=== PATIENT | female | born 1940 | race Caucasian/White ===

== ENCOUNTER 2018-08-08 04:24 | Outpatient (CLI) | payer MEDICARE, SELFPAY ==
[2018-08-08 08:37] LABS: ALT 28 U/L (12-78); AST 25 U/L (15-37); Albumin 4.1 g/dL (3.4-5.0); Alkaline Phosphatase 132 U/L (46-116); Anion Gap 8.1 mmol/L (3-11); BUN 14 mg/dL (7-18); Bilirubin, Total 0.4 mg/dL (0.2-1.0); CO2 28.9 mmol/L (21.0-32.0); CREATININE 0.72 mg/dL (0.55-1.02); Calcium 9.2 mg/dL (8.5-10.1); Chloride 98 mmol/L (98-107); Glucose 92 mg/dL (70-100); Potassium 4.1 mmol/L (3.5-5.1); Sodium 135 mmol/L (136-145); Total Protein 7.3 g/dL (6.4-8.2)
[2018-08-08 08:49] LABS: Cholesterol 231 mg/dL (50-200); HDL Cholesterol 69 mg/dL (40-60); LDL CHOLESTEROL 142 mg/dL (<100); Triglyceride 66 mg/dL (30-150)
== END 2018-08-08 04:44 ==
DX: I10 Essential (primary) hypertension (principal); E78.2 Mixed hyperlipidemia; H81.02 Meniere's disease, left ear
CPT/HCPCS: 36415; 80053; 80061; 83721

== ENCOUNTER 2018-08-30 06:30 | Outpatient (CLI) | payer MEDICARE, OTHER, SELFPAY ==
--- NOTE | 2018-08-30 08:00 | DI.MAMMO_ITS ---
SYMPTOMS/DIAGNOSIS: SCREENING, Z12.31 MAMMOGRAMS: Mammograms were interpreted according to the usual protocol including computer analysis with CAD system, tomosynthesis and C view imaging. The breast tissue is of moderate radiodensity. There is no evidence of a mass. There are no suspicious calcifications and there has been no significant interval change when compared with prior images. SUMMARY: No evidence of malignancy, category 1. Yearly screening mammography is recommended. Breast density category B. SA ASSESSMENT OF FINDINGS: Negative. Category 1. Patient will receive a letter notifying them of these results. BI-RADS category B. There are scattered areas of fibroglandular density.
== END 2018-08-30 06:50 ==
DX: Z12.31 Encounter for screening mammogram for malignant neoplasm of breast (principal)
CPT/HCPCS: 77063; 77067

== ENCOUNTER 2019-07-19 02:12 | Outpatient (CLI) | payer MEDICARE, OTHER, SELFPAY ==
--- NOTE | 2019-07-19 | DI.MRI_ITS ---
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 CONTRAST MATERIAL: IV Contrast: 13 mL of Magnevist contrast administered. COMPARISON: No exams were available for comparison FINDINGS: VENTRICLES AND EXTRA AXIAL SPACES: Normal in size and morphology for the patient's age. HEMORRHAGE: None. CEREBRAL PARENCHYMA: No focus of restricted diffusion to suggest acute infarct. No space-occupying le berny identified. MIDLINE SHIFT: None. BRAINSTEM/CEREBELLUM: Normal. CALVARIUM: Normal. ENHANCEMENT: No suspicious enhancement identified. VISUALIZED PARANASAL SINUSES/MASTOIDS: Clear. IAC/CP ANGLE: The internal auditory canals are within normal limits. The cerebellar pontine angles ar e unremarkable. No enhancing lesions are seen. Visualized portion of the facial nerves appear within normal limits. OTHER FINDINGS: A normal flow void is seen in the [place]. The pituitary gland appears koffi sly unremarkable. IMPRESSION: Unremarkable MRI of the brain and internal auditory canals. DATA REPOSITORY:
[2019-07-19 14:09] LABS: ALT 29 U/L (14-59); AST 27 U/L (15-37); Albumin 4.4 g/dL (3.4-5.0); Alkaline Phosphatase 132 U/L (46-116); Anion Gap 7.2 mmol/L (3-11); BUN 12 mg/dL (7-18); Bilirubin, Total 0.4 mg/dL (0.2-1.0); CO2 30.8 mmol/L (21.0-32.0); CREATININE 0.74 mg/dL (0.55-1.02); Calcium 9.1 mg/dL (8.5-10.1); Chloride 94 mmol/L (98-107); Glucose 99 mg/dL (74-106); Potassium 3.4 mmol/L (3.5-5.1); Sodium 132 mmol/L (136-145)
[2019-07-19] MEDS: Normal Saline Flush 10 ML SYR IVP (14:26)
[2019-07-19] MEDS: Gadoterate meglumine 20 ML VIAL 13 ML IVP (14:27)
== END 2019-07-19 02:32 ==
PROVIDERS: Visit Provider Otolaryngology
DX: H90.42 Sensorineural hearing loss, unilateral, left ear, with unrestricted hearing on the contralateral side (principal); R42 Dizziness and giddiness; H53.8 Other visual disturbances
CPT/HCPCS: 70553; 80053

== ENCOUNTER 2020-02-21 04:11 | Outpatient (CLI) | payer MEDICARE, OTHER, SELFPAY ==
[2020-02-21 10:24] LABS: TSH (W/Ref FT4) 2.86 uIU/mL (0.36-3.74)
== END 2020-02-21 04:31 ==
DX: G47.00 Insomnia, unspecified (principal); L65.9 Nonscarring hair loss, unspecified
CPT/HCPCS: 36415; 84443

== ENCOUNTER 2020-09-08 02:33 | Outpatient (CLI) | payer MEDICARE, OTHER, SELFPAY ==
[2020-09-08 09:53] LABS: ALT 29 U/L (14-59); AST 25 U/L (15-37); Albumin 4.1 g/dL (3.4-5.0); Alkaline Phosphatase 124 U/L (46-116); Anion Gap 9.2 mmol/L (3-11); BUN 15 mg/dL (7-18); Bilirubin, Total 0.5 mg/dL (0.2-1.0); CO2 28.8 mmol/L (21.0-32.0); CREATININE 0.8 mg/dL (0.55-1.02); Calcium 9.1 mg/dL (8.5-10.1); Chloride 99 mmol/L (98-107); Glucose 94 mg/dL (74-106); Potassium 4.5 mmol/L (3.5-5.1); Sodium 137 mmol/L (136-145); Total Protein 7.4 g/dL (6.4-8.2)
== END 2020-09-08 02:34 | disposition home or self-care (01) ==
LOC: LBO 02:33
DX: I10 Essential (primary) hypertension (principal); H81.02 Meniere's disease, left ear; Z00.00 Encounter for general adult medical examination without abnormal findings
CPT/HCPCS: 36415; 80053

== ENCOUNTER 2021-03-23 15:26 | Outpatient (REF) | payer MEDICARE, OTHER, SELFPAY | END 2021-03-23 15:27 | disposition home or self-care (01) | LOC: LBN 15:26 | DX: N39.0 Urinary tract infection, site not specified (principal) | CPT/HCPCS: 87077; 87086; 87186 ==

== ENCOUNTER 2021-03-25 10:31 | Emergency (ER) | payer MEDICARE, OTHER, SELFPAY ==
[2021-03-25 10:36] VITALS: BP 171/67; PULSE 106; RESP 16; TEMP 36.3; O2SAT 97
--- NOTE | 2021-03-25 11:10 | W.ED.GENAD ---
Discharge Plan Disposition Patient Disposition: HOME Condition: Stable Discharge Details Clinical Impression: Renal cyst, [place], hemorrhage, Hypokalemia, Acute hyponatremia Primary Care Provider: Annamaria Ferrer ED Provider: Kristi Dave Home Meds and New Rx's Prescriptions: Continued meclizine 25 mg tablet 25 mg PO TID PRNRF: 0 potassium chloride 10 mEq tablet extended release 10 meq PO .every other day Qty: 45 RF: 3 polyethylene glycol 3350 [Miralax] 17 gram/dose powder 17 g PO DAILY PRN (Reason: constipation) Qty: 510 RF: 6 cholecalciferol (vitamin D3) 10 mcg/drop (400 unit/drop) drops 10 mcg PO DAILY RF: 0 ciprofloxacin HCl 750 mg tablet 750 mg PO BID Qty: 10 RF: 0 Discontinued hydrochlorothiazide 25 mg tablet 25 mg PO DAILY Qty: 90 RF: 4 Discharge Instructions Instructions: Hypokalemia (ED), Hyponatremia (ED) Additional Instructions: Stop taking your hydrochlorothiazide and sprinkle salt on your food Recheck your sodium in 24 to 48 hours Stop taking your antibiotic You have a on your kidney that is bleeding, this will likely resolve on its own Please follow-up with the urologist listed below to schedule an appointment You may take Tylenol as needed for pain I am giving you a several oxycodone, you may take this sparingly, do not drive for 8 hours taking this medication it can make you constipated Take 20 mEq of your potassium daily for the next 4 days and then switch back to 10 mg Referrals: Annamaria Ferrer NP [Primary Care Provider] - Jaime Restrepo MD [ [facility] STAFF PHYSICIAN] - Discharge Data Discharge Date/Time-TO BE ENTERED AT DEPARTURE: 03/25/21 15:34 Medical Decision Making Patient does have hyponatremia, hypokalemia, hypochloremia all consistent with hydrochlorothiazide use I will discontinue her hydrochlorothiazide at this time, she is asymptomatic needs electrolyte abnormalities, she was given 1 L of normal saline, she will sprinkle some salt on her food and discontinue her hydrochlorothiazide She has supplemental potassium at home, she will increase her dosing to 20 mEq for the next 3 days She will need to follow-up with her doctor closely as I am removing antihypertensive medication She will call tomorrow As for the flank pain, I suspect her symptoms are related to hemorrhagic left cyst on her kidney This was discussed with Dr. Restrepo who will follow her closely She is hemodynamically stable, ambulatory with steady gait, she was given several tablets of oxycodone should she need it at night She reviewed the risk associated with taking this medication and feels comfortable for short-term. Her urinalysis is completely clear without evidence of infection She will talk to her doctor about whether or not to continue this medication She is given low threshold to return should she have new or worsening complaints, at time of discharge home she appears well, and is discharged home in stable condition CT findings reviewed with patient and results of radiologist report reviewed by me Will need repeat sodium Medical Records Medical records reviewed: Yes I reviewed the patient's medical records. Lab Data Lab results reviewed: Yes I reviewed the patient's lab results. HPI General Mode of arrival: ambulatory. Date/Time Provider Initiated Documentation: 03/25/21 10:54. Limitations to Documentation: no limitations. Information obtained by: patient. HPI Narrative: This 80-year-old female presents with bilateral flank pain and diagnosed urinary tract infection for which she is taking antibiotics for. Reportedly her urine culture was positive for Pseudomonas and she was to ciprofloxacin 750 mg per nursing report. Patient denies any fevers or chills. She has had bloating in her abdomen and flank pain. She denies any chest pain or shortness of breath. She denies any dizziness or weakness. She denies any falls. She is not reportedly anticoagulated. She otherwise she is not been vomiting or having diarrhea. She denies any additional complaints this time. Denies dysuria or frequency. Denies history of similar symptoms in the past. Related Data Home Medications Medication Instructions Recorded Confirmed meclizine 25 mg tablet 25 mg PO TID PRN tab 08/22/18 03/25/21 polyethylene glycol 3350 17 17 g PO DAILY PRN #510 g 09/21/20 03/25/21 gram/dose oral powder potassium chloride 10 mEq 10 meq PO .every other day #45 tab 09/21/20 03/25/21 tablet,extended release cholecalciferol (vitamin D3) 10 10 mcg PO DAILY 03/23/21 03/25/21 mcg/drop (400 unit/drop) oral drops ciprofloxacin HCl 750 mg tablet 750 mg PO BID #10 tab 03/24/21 03/25/21 Previous Rx's Medication Instructions Recorded polyethylene glycol 3350 17 17 g PO DAILY PRN #510 g 09/21/20 gram/dose oral powder potassium chloride 10 mEq 10 meq PO .every other day #45 tab 09/21/20 tablet,extended release ciprofloxacin HCl 750 mg tablet 750 mg PO BID #10 tab 03/24/21 Allergies Allergy/AdvReac Type Severity Reaction Status Date / Time No Known Allergies Allergy Verified 03/25/21 10:50 General Stated Complaint: Urinary FRANTZ: 3 Review of Systems All systems reviewed & are unremarkable except as noted in HPI and below PFSH Active Problem List Asymmetrical sensorineural hearing loss (Acute) Asymmetrical sensorineural hearing loss (Acute) Sensorineural hearing loss of both ears (Acute) Tinnitus of left ear (Acute) Hyperlipidemia (Acute 06/28/12) Osteopenia (Acute 04/06/02) Essential hypertension (Acute 06/19/13) Conductive hearing loss, external ear (Acute) Sensorineural hearing loss, asymmetrical (Chronic 05/20/13) Polyp of colon (Acute 06/07/08) Encounter for annual physical exam (Acute) Irritable bowel syndrome (Acute) Constipation (Acute 04/24/17) Bilateral thoracic back pain (Acute 04/09/15) Hair thinning (Acute) 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 Brother Essential hypertension Hyperlipidemia Brother , SUICIDE at age 71. Essential hypertension Hyperlipidemia Prostate cancer Brother Essential hypertension Hyperlipidemia Brother Diabetes Heart disease Hyperlipidemia Maternal Grandfather No problems noted. Paternal Grandfather No problems noted. Maternal Grandmother No problems noted. Paternal Grandmother No problems noted. Son No problems noted. Daughter Menieres disease Social History Smoking/Tobacco Use Status: Never Smoking risk assessment performed?: Yes Alcohol Intake: never Drug use: Never Counseling given: No Counseling provided: none Caregiver/Support person: No Housing: apartment Communication Needs: Hard of Hearing Do you need help understanding health information?: Rarely Pets and animals: No Sexually active: No Do you think of yourself as: straight/heterosexual Current gender identity: female What is your relationship status?: How often do you talk on the phone with friends or family?: three or more times per week How often do you get together with friends or relatives?: three or more times per week How often do you attend catholic or sikhism services?: decline to answer Do you belong to any clubs or organized social groups?: no Panel score (0-1 are the most socially isolated patients): 1 What type of physical activity do you participate in: walking Frequency: daily Jerica/Yazdanism: No preference Special jerica needs: No Seatbelt use: always Drive intox or ride 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 Exam Const General: cooperative and comfortable Orientation: alert and oriented x3 HENMT Other: Moist mucous membranes Eyes Conjunctivae: conjunctivae normal Resp Effort & Inspection: normal respiratory effort Cardio Rate: regular rate GI Other: No abdominal tenderness, bilateral flank tenderness, no ecchymosis, no abdominal bruit or pulsatile mass Skin General skin exam: no rashes or lesions noted Neuro General: patient alert and patient oriented x3 Extrem Other: Distal pulses intact, no peripheral edema noted Course Vital Signs Vital signs: Vital Signs Temperature 36.3 C L 03/25/21 10:36 Pulse 106 H 03/25/21 10:36 Respiratory Rate 16 03/25/21 10:36 Blood Pressure 171/67 H 03/25/21 10:36 Pulse Oximetry 97 03/25/21 10:36 Temperature 36.3 C L 03/25/21 10:36 Pulse 106 H 03/25/21 10:36 Respiratory Rate 16 03/25/21 10:36 Respiratory Effort Non-Labored 03/25/21 10:36 Blood Pressure 171/67 H 03/25/21 10:36 Pulse Oximetry 97 03/25/21 10:36 Oxygen Delivery Method Room Air 03/25/21 10:36 Oxygen Flow Rate 0 03/25/21 10:36 Pain Level 8 03/25/21 10:53 Lab/Test Results Lab/Test Results: Laboratory Tests Range/Units 03/25/21 10:45 Urine Color Cancelled Urine Clarity Cancelled Urine pH Cancelled Ur Specific [place] Cancelled Urine Protein Cancelled Urine Ketones Cancelled Urine Blood Cancelled Urine Nitrite Cancelled Urine Bilirubin Cancelled Urine Urobilinogen Cancelled Ur Leukocyte Esterase Cancelled Urine Glucose Cancelled
[2021-03-25 11:32] VITALS: TEMP 36.3
[2021-03-25] MEDS: ACETAMINOPHEN 1,000 MG/100 ML BTL 400 MG IVPB (11:32)
[2021-03-25 11:41] LABS: Abs Immature Grans 0.03 10^3/uL (0.0-0.06); Absolute Basophil Count 0.02 10^3/uL (0.0-0.2); Absolute Eosinophil Count 0.01 10^3/uL (0.0-0.7); Absolute Lymphocyte Count 1.48 10^3/uL (1.2-3.4); Absolute Monocyte Count 0.73 10^3/uL (0.1-0.8); Basophils % 0.3; Eosinophils % 0.1; HCT 40.5 % (36.0-46.0); Immature Grans % 0.4; Lymphocytes % 20.4; MCH 30.5 pg (27.0-33.0); MCHC 34.6 % (32.0-36.0); MCV 88.2 fL (80-95); MPV 10.4 fL (8.0-11.0); Neutrophils % 68.8; Nucleated RBC 0 %; Platelet Count 301 10^3/uL (130-400); RBC 4.59 10^6/uL (3.93-5.22); RDW 12.3 % (11.7-14.6); RDW-SD 39.8 fL; WBC 7.27 10^3/uL (4.4-10.8)
[2021-03-25 11:56] LABS: ALT 26 U/L (14-59); AST 33 U/L (15-37); Albumin 4.1 g/dL (3.4-5.0); Alkaline Phosphatase 109 U/L (46-116); Anion Gap 11.8 mmol/L (3-11); BUN 9 mg/dL (7-18); Bilirubin, Total 0.5 mg/dL (0.2-1.0); CO2 25.2 mmol/L (21.0-32.0); Calcium 9.2 mg/dL (8.5-10.1); Chloride 89 mmol/L (98-107); Estimated GFR 53.62 (mL/min/1.73m2); Glucose 116 mg/dL (74-106); Lipase 61 U/L (73-393); Potassium 3.3 mmol/L (3.5-5.1); Sodium 126 mmol/L (136-145); Total Protein 8.2 g/dL (6.4-8.2)
[2021-03-25 13:04] LABS: Bilirubin Negative (Negative); Blood Trace-lysed (Negative); Clarity Clear (Clear); Glucose Negative (Negative); Ketones Negative (Negative); Leukocyte Esterase Negative (Negative); Nitrite Negative (Negative); Urobilinogen 0.2 EU/dL (Up TO 0.2)
[2021-03-25 13:05] LABS: Creatine Kinase 261 U/L (26-192)
[2021-03-25 13:09] VITALS: BP 139/51; PULSE 80; TEMP 36.4; O2SAT 98
[2021-03-25 13:33] LABS: Bacteria Negative HPF (Negative); C & S Indicated? No; Casts Negative LPF (Negative); Crystals Negative HPF (Negative); Epithelial Cells Negative HPF (Negative); Mucus Negative (Negative); RBC 0-2 HPF (0-2); WBC Negative HPF (0-5)
--- NOTE | 2021-03-25 13:35 | DI.CT_ITS ---
Exam(s) CT ABDOMEN PELVIS WO EXAM: CT ABDOMEN PELVIS WO CLINICAL HISTORY: flank pain, dysuria. TECHNIQUE: Imaging Protocol: Axial computed tomography images with coronal and sagittal reformatted images were created and reviewed CONTRAST MATERIAL: Intravenous: none Oral: None COMPARISON: No exams were available for comparison FINDINGS: VISUALIZED LUNG BASES: No nodules nor pleural effusions evident. ABDOMEN: There is no ascites. LIVER: There is a 5 millimeter cyst in the right hepatic lobe. No other focal hepatic findings evide nt on this noninfused study. GALLBLADDER/BILIARY: No obvious gallbladder pathology. CBD is not dilated. PANCREAS: No evidence of pancreatic mass nor dilatation of the pancreatic duct. SPLEEN: Spleen is not enlarged. No obvious intrasplenic lesions. ADRENALS: There are no significant adrenal masses. KIDNEYS:Right kidney unremarkable. There is an exophytic 3.8 x 2.8 cm mass off the inferior aspect o f the left kidney which exhibits mild peripheral calcification. Otherwise homogeneous. Possibly hem orrhagic cyst but will require ultrasound. No calculi in the kidneys. Slight prominence of the uret ers but no caliectasis evident. No calculi at the ureterovesical junctions nor within the urinary bl adder.. ABDOMINAL AORTA: Abdominal aorta is not enlarged. LYMPH NODES: There is no retroperitoneal nor paraaortic adenopathy. ABDOMINAL WALL: No evidence of significant anterior abdominal wall nor inguinal hernia. GI: There is no evidence of bowel obstruction, free air, nor abscess. PELVIS: LYMPH NODES: There is no intrapelvic nor inguinal adenopathy. GI: No evidence of appendicitis.No evidence of sigmoid diverticulitis. URINARY BLADDER: No calculi nor obvious masses evident REPRODUCTIVE: Uterus and adnexal regions unremarkable. No free fluid in the pelvis. OSSEOUS: No significant osseous lesions. Multilevel chronic degenerative disc disease. IMPRESSION: 1. No evidence of renal calculi nor calculi in the urinary bladder. 2. There is a 38 x 28 cm exophytic mass off the inferior pole the left kidney with mild peripheral ca lcification. Probably hemorrhagic complicated cyst. Recommend ultrasound examination to determine c yst from solid here. Opposite-right kidney appears unremarkable. RADIATION DOSE DELIVERED: 763.58mGy.cm Total DLP DATA REPOSITORY: All CT scans at this facility are submitted to the National Radiology Data Registry (NRDR) Dose Index Registry (DIR) with the [employer] (ACR). RADIATION OPTIMIZATION: All CT scans at this facility use at least one of these dose optimization te chniques: automated exposure control; mA and/or kV adjustment per patient size (includes targeted exa ms where dose is matched to clinical indication); or iterative reconstruction.
[2021-03-25 15:25] VITALS: BP 146/75; PULSE 102; RESP 18; TEMP 36.3; O2SAT 96
== END 2021-03-25 15:34 | disposition home or self-care (01) ==
PROVIDERS: Emergency Provider Physician Assistant
DX: N28.1 Cyst of kidney, acquired (principal); E87.6 Hypokalemia; E87.1 Hypo-osmolality and hyponatremia; E87.8 Other disorders of electrolyte and fluid balance, not elsewhere classified
CPT/HCPCS: 36415; 80053; 82550; 83690; 96374; 99284; 74176; 81003; 81015; 85025; J0131

== ENCOUNTER 2021-03-26 21:10 | Outpatient (CLI) | payer MEDICARE, OTHER, SELFPAY ==
[2021-03-26 17:44] LABS: ALT 31 U/L (14-59); AST 37 U/L (15-37); Albumin 4.5 g/dL (3.4-5.0); Alkaline Phosphatase 119 U/L (46-116); Anion Gap 10.2 mmol/L (3-11); BUN 15 mg/dL (7-18); Bilirubin, Total 0.3 mg/dL (0.2-1.0); CO2 25.8 mmol/L (21.0-32.0); Calcium 9.5 mg/dL (8.5-10.1); Chloride 95 mmol/L (98-107); Estimated GFR 53.62 (mL/min/1.73m2); Glucose 89 mg/dL (74-106); Potassium 4.5 mmol/L (3.5-5.1); Sodium 131 mmol/L (136-145); Total Protein 7.8 g/dL (6.4-8.2)
== END 2021-03-26 21:11 | disposition home or self-care (01) ==
LOC: LBO 21:11
DX: E87.1 Hypo-osmolality and hyponatremia (principal); N28.1 Cyst of kidney, acquired; N28.89 Other specified disorders of kidney and ureter
CPT/HCPCS: 36415; 80053

== ENCOUNTER 2021-04-05 03:09 | Outpatient (CLI) | payer MEDICARE, OTHER, SELFPAY ==
[2021-04-05 12:35] LABS: ALT 27 U/L (14-59); AST 18 U/L (15-37); Albumin 4.3 g/dL (3.4-5.0); Alkaline Phosphatase 117 U/L (46-116); Anion Gap 9.5 mmol/L (3-11); BUN 10 mg/dL (7-18); Bilirubin, Total 0.3 mg/dL (0.2-1.0); CO2 27.5 mmol/L (21.0-32.0); CREATININE 0.7 mg/dL (0.55-1.02); Calcium 9.4 mg/dL (8.5-10.1); Chloride 98 mmol/L (98-107); Glucose 107 mg/dL (74-106); Potassium 4.6 mmol/L (3.5-5.1); Sodium 135 mmol/L (136-145); Total Protein 7.4 g/dL (6.4-8.2)
== END 2021-04-05 03:10 | disposition home or self-care (01) ==
LOC: LBO 03:10
DX: E03.9 Hypothyroidism, unspecified (principal)
CPT/HCPCS: 36415; 80053

== ENCOUNTER → 2021-04-08 12:45 | Outpatient (BNVA) | payer MEDICARE, OTHER, SELFPAY | PROVIDERS: Visit Provider Urology | DX: N28.1 Cyst of kidney, acquired (principal); R30.0 Dysuria; N28.89 Other specified disorders of kidney and ureter; N95.2 Postmenopausal atrophic vaginitis | CPT/HCPCS: 81003; 99214 ==

== ENCOUNTER 2021-04-26 03:19 | Outpatient (CLI) | payer MEDICARE, OTHER, SELFPAY ==
[2021-04-26 11:33] LABS: Anion Gap 7.3 mmol/L (3-11); BUN 11 mg/dL (7-18); CO2 27.7 mmol/L (21.0-32.0); CREATININE 0.6 mg/dL (0.55-1.02); Calcium 9.4 mg/dL (8.5-10.1); Chloride 100 mmol/L (98-107); Glucose 95 mg/dL (74-106); Potassium 4.5 mmol/L (3.5-5.1); Sodium 135 mmol/L (136-145)
== END 2021-04-26 03:20 | disposition home or self-care (01) ==
LOC: LBO 03:19
DX: E87.1 Hypo-osmolality and hyponatremia (principal)
CPT/HCPCS: 36415; 80048

== ENCOUNTER 2021-04-29 19:25 | Outpatient (REF) | payer MEDICARE, OTHER, SELFPAY ==
[2021-04-29 19:31] LABS: Bilirubin Negative (Negative); Blood Trace-lysed (Negative); Clarity Clear (Clear); Glucose Negative (Negative); Ketones Negative (Negative); Leukocyte Esterase Trace (Negative); Nitrite Negative (Negative); Specific Gravity 1.015 (1.005-1.025); Urobilinogen 0.2 EU/dL (Up TO 0.2); pH 6.5 (5-8)
[2021-04-29 19:44] LABS: Epithelial Cells Many HPF (Negative); RBC 0-2 HPF (0-2)
[2021-04-29 19:45] LABS: Bacteria Moderate HPF (Negative); C & S Indicated? C&S Done As Ordered; Crystals Negative HPF (Negative); Mucus Negative (Negative); Other Cells Rare Transitional (Negative)
== END 2021-04-29 19:26 | disposition home or self-care (01) ==
LOC: LBN 19:25
DX: M54.50 Low back pain, unspecified (principal); R30.0 Dysuria
CPT/HCPCS: 81003; 81015; 87086

== ENCOUNTER → 2021-05-11 01:07 | Outpatient (CLI) | payer MEDICARE, OTHER, SELFPAY ==
--- NOTE | 2021-05-11 07:45 | DI.US_ITS ---
Exam(s) US RENAL EXAM: US RENAL CLINICAL HISTORY: cyst versus solid,lt renal cyst,n28.1. TECHNIQUE: Hernandez scale, color and spectral Doppler were used. COMPARISON: CT ABD PELVIS WITH CONTRAST from 07/30/[address] ABDOMEN PELVIS WO from 03/25/[address] ABDOMEN PELVIS WO from 03/25/2021 FINDINGS: Renal size in cm: Right: 8.8. Left: 9.7. Echogenicity: Normal. Hydronephrosis: No. Cyst or mass: 3.5 x 2.8 x 3.3 cm simple cyst in the inferior pole of the left kidney. This is unchan ged compared to prior examinations. No follow-up is recommended. Nephrolithiasis: No. Other findings: None. Bladder:Normal. Ureteral jets: Right: Visualized and unremarkable. Left: Visualized and unremarkable. Prevoid vol:121 cc Postvoid vol:26 cc Renal color flow: Symmetric and within normal limits. IMPRESSION: Simple left renal cyst in the inferior pole. This was been present on prior examinations dating back to 2014. DATA REPOSITORY:
[2022-05-11 15:19] LABS: Abs Immature Grans 0.03 10^3/uL (0.0-0.06); Absolute Basophil Count 0.04 10^3/uL (0.0-0.2); Absolute Eosinophil Count 0.04 10^3/uL (0.0-0.7); Absolute Monocyte Count 0.87 10^3/uL (0.1-0.8); Absolute Neutrophil Count 5.59 10^3/uL (1.2-6.7); Basophils % 0.5; Eosinophils % 0.5; HGB 13.1 g/dL (11.2-15.7); Immature Grans % 0.4; Lymphocytes % 20.6; MCH 30.9 pg (27.0-33.0); MCHC 33.6 % (32.0-36.0); MCV 92 fL (80-95); MPV 10.8 fL (8.0-11.0); Monocytes % 10.5; Neutrophils % 67.5; Platelet Count 270 10^3/uL (130-400); RBC 4.24 10^6/uL (3.93-5.22); RDW 13.4 % (11.7-14.6); RDW-SD 45.3 fL; WBC 8.27 10^3/uL (4.4-10.8)
[2022-05-11 15:41] LABS: ALT 26 U/L (14-59); AST 26 U/L (15-37); Albumin 4.2 g/dL (3.4-5.0); Alkaline Phosphatase 112 U/L (46-116); Anion Gap 7.8 mmol/L (3-11); BUN 15 mg/dL (7-18); Bilirubin, Total 0.3 mg/dL (0.2-1.0); CO2 26.2 mmol/L (21.0-32.0); CREATININE 0.8 mg/dL (0.55-1.02); Calcium 9.4 mg/dL (8.5-10.1); Chloride 103 mmol/L (98-107); Estimated GFR 74.44 (mL/min/1.73m2); Glucose 111 mg/dL (74-106); Sodium 137 mmol/L (136-145); Total Protein 7.9 g/dL (6.4-8.2)
== END ==
PROVIDERS: Nurse Practitioner Family; Visit Provider Urology
DX: N28.1 Cyst of kidney, acquired (principal); N95.2 Postmenopausal atrophic vaginitis; N28.89 Other specified disorders of kidney and ureter; R10.31 Right lower quadrant pain
CPT/HCPCS: 76770; 99213

== ENCOUNTER 2021-06-03 13:24 | Outpatient (REF) | payer MEDICARE, OTHER, SELFPAY | END 2021-06-03 13:25 | disposition home or self-care (01) | LOC: LBN 13:24 | DX: B37.9 Candidiasis, unspecified (principal) | CPT/HCPCS: 87480; 87510; 87660 ==

== ENCOUNTER 2021-06-30 01:44 | Outpatient (CLI) | payer MEDICARE, OTHER, SELFPAY ==
[2021-06-30 11:32] LABS: TSH (W/Ref FT4) 2.56 uIU/mL (0.36-3.74); Vitamin B12 467 pg/mL (193-986)
[2021-07-01 01:10] LABS: Vitamin D 25 Total 77.8 ng/mL (30-100)
== END 2021-06-30 01:45 | disposition home or self-care (01) ==
LOC: LBO 01:44
PROVIDERS: Visit Provider Family Medicine
DX: M79.2 Neuralgia and neuritis, unspecified (principal); M85.88 Other specified disorders of bone density and structure, other site; E03.9 Hypothyroidism, unspecified
CPT/HCPCS: 36415; 82306; 82607; 84443

== ENCOUNTER 2021-09-21 02:21 | Outpatient (CLI) | payer MEDICARE, OTHER, SELFPAY ==
[2021-09-21 09:31] LABS: Anion Gap 8.6 mmol/L (3-11); BUN 16 mg/dL (7-18); CO2 26.4 mmol/L (21.0-32.0); CREATININE 0.8 mg/dL (0.55-1.02); Calcium 9.1 mg/dL (8.5-10.1); Chloride 102 mmol/L (98-107); Glucose 93 mg/dL (74-106); Potassium 4.4 mmol/L (3.5-5.1); Sodium 137 mmol/L (136-145)
== END 2021-09-21 02:22 | disposition home or self-care (01) ==
LOC: LBO 02:21
DX: I10 Essential (primary) hypertension (principal); E87.1 Hypo-osmolality and hyponatremia
CPT/HCPCS: 36415; 80048

== ENCOUNTER → 2022-03-28 11:13 | Outpatient (CLI) | payer MEDICARE, OTHER, SELFPAY ==
--- NOTE | 2022-03-28 11:00 | DI.RAD_ITS ---
Exam(s) XR ABDOMEN FLAT UPRIGHT EXAM: 2D digital imaging was performed. CLINICAL HISTORY: abdominal pain, R10.9. COMPARISON: No exams were available for comparison TECHNIQUE: Supine and uprightSupine and Lateral views of the abdomen were performed. FINDINGS: BOWEL GAS PATTERN: Nondistended.No free air. Normal quantity of stool. CALCIFICATIONS: No urinary tract calcifications. OSSEOUS STRUCTURES: Scoliosis and degenerative changes. Laminectomy defects at L 3 and L4. OTHER FINDINGS: Lung bases are clear. IMPRESSION: 1. Nonobstructive bowel gas pattern. 2. No radiopaque calculi. 3. No free air. DATA REPOSITORY: RADIATION DOSE DELIVERED:
== END ==
PROVIDERS: PCP Nurse Practitioner Family; Visit Provider Physician Assistant
DX: R10.9 Unspecified abdominal pain (principal)
CPT/HCPCS: 74019

== ENCOUNTER → 2022-04-19 01:26 | Outpatient (CLI) | payer MEDICARE, OTHER, SELFPAY ==
--- NOTE | 2022-04-19 07:15 | DI.US_ITS ---
Exam(s) US PELVIS TRANSVAGINAL EXAM: US PELVIS TRANSVAGINAL CLINICAL HISTORY: abdominal bloating,R14.0. TECHNIQUE: Transabdominal and transvaginal pelvic ultrasound was performed using standard protocol. COMPARISON: CT CT ABDOMEN PELVIS WO from 03/25/2021 US US RENAL from 05/11/2021 FINDINGS: KIDNEYS: Limited renal evaluation is unremarkable except for stable simple cyst in the inferior pole of the left kidney. UTERUS: Position: Anteverted. Size: 4.4 long by 2.8 AP by 3.5 transverse cm Endometrium: 0.2 cm. Normal for patient's menstrual status. Myometrium: There is an area of decreased echogenicity measuring 1.6 x 1.3 x 1.8 cm within the fundus of the uterus. This may be artifactual but a uterine fibroid cannot be excluded. No suspicious lauren metrial masses are seen sonographically. Cervix: Unremarkable. OVARIES: The ovaries were not visualized transabdominally or transvaginally. No suspicious adnexal m asses are seen. CUL-DE-SAC: Free fluid: None. Other: None. IMPRESSION: 1. Stable left renal simple cyst. No follow-up is recommended. 2. Normal-appearing uterus with endometrial stripe within normal limits. Question of a uterine fibro id. 3. The ovaries were not visualized on this examination. No suspicious adnexal masses are seen. DATA REPOSITORY:
== END ==
PROVIDERS: PCP Nurse Practitioner Family; Visit Provider Obstetrics & Gynecology Gynecology
DX: R14.0 Abdominal distension (gaseous) (principal); N28.1 Cyst of kidney, acquired
CPT/HCPCS: 76830; 76856

== ENCOUNTER 2022-05-11 15:26 | Outpatient (CLI) | payer MEDICARE, OTHER, SELFPAY ==
--- NOTE | 2022-05-11 14:38 | DI.CT_ITS ---
Exam(s) CT ABDOMEN PELVIS W EXAM: CT ABDOMEN PELVIS W CLINICAL HISTORY: RLQ abd pain, tender to palpation,. TECHNIQUE: Imaging Protocol: Axial computed tomography images with coronal and sagittal reformatted images were created and reviewed CONTRAST MATERIAL: Intravenous: Omnipaque-350 100cc Oral: Yes. Oral contrast was also administered for bowel opacification COMPARISON: CT CT ABDOMEN PELVIS WO from 03/25/2021 US US RENAL from 05/11/2021 FINDINGS: VISUALIZED LUNG BASES: No nodules nor pleural effusions evident. ABDOMEN: There is no ascites. LIVER: Small 5 millimeter hypodensity right hepatic lobe again noted which is probably benign cyst. No other focal hepatic lesions identified. No dilated intrahepatic ducts. GALLBLADDER/BILIARY: No obvious gallbladder pathology. CBD is not dilated. PANCREAS: No evidence of pancreatic mass nor dilatation of the pancreatic duct. SPLEEN: Spleen is not enlarged. No obvious intrasplenic lesions. Splenic and portal veins are paten t. ADRENALS: There are no significant adrenal masses. KIDNEYS:There is small cyst in the of the right measures approximately 1 cm size. No other focal rig ht kidney findings. In the opposite-left kidney there is again noted a peripherally partially calcif ied cyst, shown to be a cyst on prior ultrasound examination. This is unchanged in size, measuring 3 .3 cm by 3 cm. No solid renal masses. No calculi nor hydronephrosis.. ABDOMINAL AORTA: Abdominal aorta is calcified but not enlarged. Common iliac arteries are calcified but not enlarged. LYMPH NODES:There is no retroperitoneal nor paraaortic adenopathy. ABDOMINAL WALL: No evidence of significant anterior abdominal wall nor inguinal hernia. GI: There is no evidence of bowel obstruction, free air, nor abscess. PELVIS: GI: No evidence of appendicitis.No evidence of sigmoid diverticulitis. LYMPH NODES: There is no intrapelvic nor inguinal adenopathy. REPRODUCTIVE: Uterus size is normal but there appears to be some endometrial thickening, the endometr ium measuring approximately 11 millimeters in this age group. No abnormal adnexal masses nor free fl uid in the pelvis. URINARY BLADDER: No calculi nor obvious masses evident OSSEOUS: No significant osseous lesions. No fractures. IMPRESSION: 1. Endometrium appears thickened and should be further studied with ultrasound to determine true endo metrial thickness. 2. Previously described partially exophytic left renal findings remain stable and-been shown to be a benign cyst on prior ultrasound examination of 05/21/2021. Smaller benign cyst measuring 1 cm seen in the opposite-right kidney. No obvious solid renal masses. 3. Other findings as above. RADIATION DOSE DELIVERED: 712.61mGy.cm Total DLP DATA REPOSITORY: All CT scans at this facility are submitted to the National Radiology Data Registry (NRDR) Dose Index Registry (DIR) with the [employer] (ACR). RADIATION OPTIMIZATION: All CT scans at this facility use at least one of these dose optimization te chniques: automated exposure control; mA and/or kV adjustment per patient size (includes targeted exa ms where dose is matched to clinical indication); or iterative reconstruction.
[2022-05-11] MEDS: Barium Sulfate 2% W/V-Berry Smoothie 450 ML BTL 900 ML PO (16:00)
[2022-05-11] MEDS: Omnipaque 350 MG/ML 100 ML BTL IJ (17:00)
[2022-05-11] MEDS: Normal Saline Flush 10 ML SYR IVP (17:02)
[2022-05-11] MEDS: Normal Saline - Diluent 50 ML VIAL IJ (17:03)
--- NOTE | 2022-05-11 17:40 | DI.VRAD_ITS ---
PROCEDURE INFORMATION: Exam: CT Abdomen And Pelvis With Contrast Exam date and time: 05/11/2022 4:56 PM Age: 82 years old Clinical indication: Other: Rlq abd pain, tender to palpation TECHNIQUE: Imaging protocol: Computed tomography of the abdomen and pelvis with contrast. Contrast material: OMNIPAQUE 350; Contrast volume: 100 ml; Contrast route: INTRAVENOUS (IV); COMPARISON: CT ABDOMEN PELVIS WO 03/25/2021 1:30 PM FINDINGS: Lungs: Bibasilar atelectasis versus scarring. Liver: Subcentimeter hypoattenuating focus within the liver, too small to further characterize. Normal liver contour. Gallbladder and bile ducts: Normal. No calcified stones. No ductal dilation. Pancreas: Normal. No ductal dilation. Spleen: Normal. No splenomegaly. Adrenal glands: Normal. No mass. Kidneys and ureters: 3.3 cm hypoattenuating left renal lesion with average Hounsfield units of greater than 20, indeterminate. Subcentimeter hypoattenuating right renal lesion, too small to further characterize. Stomach and bowel: There is narrowing of the duodenum as it passes between the SMA and aorta without evidence of obstruction. Colonic diverticulosis without evidence of diverticulitis Appendix: No evidence of appendicitis. Intraperitoneal space: Unremarkable. No free air. No significant fluid collection. Vasculature: Moderate atherosclerotic calcification of the abdominal aorta. Lymph nodes: Unremarkable. No enlarged lymph nodes. Urinary bladder: Unremarkable as visualized. Reproductive: Unremarkable as visualized. Bones/joints: Severe multilevel degenerative changes of the spine. Soft tissues: Unremarkable. IMPRESSION: 1. No acute findings. 2. 3.3 cm hypoattenuating left renal lesion. This lesion is technically indeterminate, although unchanged dating back to 2020. Dictated and Authenticated by: Talon Nair MD. Ordering:MADAN Hanley MD
== END 2022-05-11 15:46 ==
LOC: DI 15:31
PROVIDERS: PCP Nurse Practitioner Family; Visit Provider Nurse Practitioner Family
DX: R10.31 Right lower quadrant pain (principal); K76.89 Other specified diseases of liver; N28.1 Cyst of kidney, acquired; R93.89 Abnormal findings on diagnostic imaging of other specified body structures
CPT/HCPCS: 80053; 74177; 85025; J3490

== ENCOUNTER → 2023-05-15 22:20 | Outpatient (CLI) | payer MEDICARE, SELFPAY ==
--- NOTE | 2023-05-15 15:16 | DI.RAD_ITS ---
Exam(s) XR THORACIC SPINE COMPLETE EXAM: XR THORACIC SPINE COMPLETE CLINICAL HISTORY: bilat thoracic back pain, m54.6. TECHNIQUE: 2D digital imaging was performed of the thoracic spine. Three views were obtained. AP, swimmer's and lateral views were obtained. COMPARISON: No exams were available for comparison FINDINGS: BONES: There is no fracture or destructive lesion. The vertebral bodies and posterior elements are un remarkable. DISKS:Alignment is within normal limits. There are mild degenerative changes seen throughout the thor acic spine. SOFT TISSUE: Visualized lungs are clear. IMPRESSION: Mild degenerative changes in the thoracic spine. DATA REPOSITORY: RADIATION DOSE DELIVERED:
--- NOTE | 2023-05-15 15:16 | DI.RAD_ITS ---
Exam(s) XR LUMBAR SPINE COMPLETE EXAM: XR LUMBAR SPINE COMPLETE CLINICAL HISTORY: low back pain, m54.50. TECHNIQUE: 2D digital imaging was performed of the lumbar spine. Six images were obtained. AP, lat eral, right oblique, left oblique and L5-S1 spot views were obtained. COMPARISON: No exams were available for comparison FINDINGS: BONES: No fracture or destructive lesion. There is disc space narrowing at all levels of the lumbar s pine except L5-S1. Vacuum discs are seen at L1-L2 and L4-L5. There are endplate osteophytes at multi ple levels of the lumbar spine. Degenerative changes of the facets are present. DISKS: Multilevel disc space narrowing. ALIGNMENT: There is a left convex curvature of the lumbar spine centered at L3. No spondylolysis or s pondylolisthesis. SOFT TISSUE: Vascular calcifications are present. IMPRESSION: Moderate degenerative changes in the lumbar spine. DATA REPOSITORY: RADIATION DOSE DELIVERED:
--- NOTE | 2023-05-15 15:16 | DI.RAD_ITS ---
Exam(s) XR CERVICAL SPINE COMP 4-5V EXAM: XR CERVICAL SPINE COMP 4-5V CLINICAL HISTORY: neck pain, m54.2. TECHNIQUE: 2D digital imaging was performed. Five images were obtained. AP, odontoid, lateral and bi lateral oblique images were obtained. COMPARISON: No exams were available for comparison FINDINGS: There is normal alignment of the cervical spine. The disc spaces are well maintained. The bones are osteopenic. There are degenerative changes of the facets at multiple levels. No acute fracture or subluxation is appreciated. The prevertebral soft tissues are unremarkable. The cervical thoracic j unction is intact. No significant neural foraminal stenosis is present. The visualized lung apices are clear. The odontoid is intact. The lateral masses are well aligned.. IMPRESSION: Mild degenerative changes in the cervical spine. DATA REPOSITORY: RADIATION DOSE DELIVERED:
== END ==
PROVIDERS: PCP Nurse Practitioner Family; Visit Provider Nurse Practitioner Family
DX: M51.35 Other intervertebral disc degeneration, thoracolumbar region (principal); M50.30 Other cervical disc degeneration, unspecified cervical region
CPT/HCPCS: 72050; 72072; 72110

== ENCOUNTER 2023-10-31 19:46 | Outpatient (REF) | payer MEDICARE, SELFPAY | END 2023-10-31 19:47 | disposition home or self-care (01) | LOC: LBN 19:46 | PROVIDERS: PCP Nurse Practitioner Family; Visit Provider Nurse Practitioner Family | DX: R30.0 Dysuria (principal) | CPT/HCPCS: 87077; 87086; 87186 ==

== ENCOUNTER 2023-11-13 19:30 | Outpatient (REF) | payer MEDICARE, SELFPAY | END 2023-11-13 19:31 | disposition home or self-care (01) | LOC: LBN 19:30 | PROVIDERS: PCP Nurse Practitioner Family; Visit Provider Nurse Practitioner Family | DX: N30.90 Cystitis, unspecified without hematuria (principal) | CPT/HCPCS: 87086 ==

== ENCOUNTER 2024-07-09 16:20 | Outpatient (CLI) | payer MEDICARE, SELFPAY ==
[2024-07-09 16:28] LABS: Anion Gap 5.7 mmol/L (3-11); BUN 23 mg/dL (7-18); CO2 29.3 mmol/L (21.0-32.0); Calcium 9.3 mg/dL (8.5-10.1); Chloride 99 mmol/L (98-107); Estimated GFR 56.25 (mL/min/1.73m2); Glucose 100 mg/dL (74-106); Sodium 134 mmol/L (136-145)
== END 2024-07-09 16:21 | disposition home or self-care (01) ==
LOC: LBO 16:20
PROVIDERS: PCP Family Medicine; Visit Provider Family Medicine
DX: I10 Essential (primary) hypertension (principal)
CPT/HCPCS: 36415; 80048

== ENCOUNTER 2024-09-03 00:15 | Outpatient (CLI) | payer MEDICARE, SELFPAY ==
--- NOTE | 2024-09-03 07:30 | DI.CT_ITS ---
Exam(s) CT HEAD SINUS WO EXAM: CT HEAD SINUS WO CLINICAL HISTORY: chronic head pressure,? sinusitis,R51.9. TECHNIQUE: Imaging Protocol: Axial computed tomography images with coronal and sagittal reformatted images were created and reviewed COMPARISON: No exams were available for comparison FINDINGS: CT Head: Ventricles and Extra axial spaces: Normal in size and morphology for the patient's age. Hemorrhage: None. Cerebral parenchyma: Normal. Midline shift: None. Brainstem/Cerebellum: Normal. Calvarium: Normal. Visualized Paranasal sinuses/Mastoids: Clear. Soft Tissues: Unremarkable. CT Face: Facial Bones: No fracture is noted in facial bones. Sinuses: Mild mucosal thickening at the floor of the right maxillary sinus and right sphenoid sinus. Remaining sinuses are clear. Mastoids: Clear. The nasal septum is deviated toward the left. Globes, extraocular muscles, optic nerves and retrobulbar fat: Normal. Upper aerodigestive tract: Normal. Mandible and bilateral temporomandibular joints: Degenerative changes of the temporomandibular joints . Soft tissues: Normal. IMPRESSION: 1. No acute intracranial process. 2. Mild right frontal and right maxillary sinus mucosal thickening. RADIATION DOSE DELIVERED: 878.54mGy.cm Total DLP DATA REPOSITORY: All CT scans at this facility are submitted to the National Radiology Data Registry (NRDR) Dose Index Registry (DIR) with the [employer] ([employer]). RADIATION OPTIMIZATION: All CT scans at this facility use at least one of these dose optimization te chniques: automated exposure control; mA and/or kV adjustment per patient size (includes targeted exa ms where dose is matched to clinical indication); or iterative reconstruction.
== END 2024-09-03 00:35 ==
LOC: DI 00:15
PROVIDERS: PCP Family Medicine; Visit Provider Family Medicine
DX: R51.9 Headache, unspecified (principal); J32.0 Chronic maxillary sinusitis
CPT/HCPCS: 70450; 70486

== ENCOUNTER 2024-10-15 14:45 | Outpatient (CLI) | payer MEDICARE, SELFPAY ==
[2024-10-15 14:31] LABS: ESR 10 mm/hr (0-30)
[2024-10-15 22:50] LABS: CRP, High Sensitivity 0.94 mg/L (See Note)
[2024-10-16 10:22] LABS: Lyme Ab w Rflx to Lyme Confirm Negative (Negative)
[2024-10-18 14:51] LABS: Anaplasma phagocytophilum Negative (Negative); B. miyamotoi PCR Negative (Negative); Babesia divergens/MO-1 Negative (Negative); Babesia duncani Negative (Negative); Babesia microti Negative (Negative); Ehrlichia chaffeensis Negative (Negative); Ehrlichia ewingii/canis Negative (Negative); Ehrlichia muris eauclairensis Negative (Negative)
== END 2024-10-15 14:46 | disposition home or self-care (01) ==
LOC: LBO 14:45
PROVIDERS: PCP Family Medicine; Visit Provider Otolaryngology
DX: R51.9 Headache, unspecified (principal)
CPT/HCPCS: 36415; 85652; 86141; 87798; 86618

== ENCOUNTER → 2025-01-09 13:23 | Outpatient (BNVA) | payer MEDICARE, SELFPAY | PROVIDERS: PCP Family Medicine; Referring Provider Family Medicine; Visit Provider Nurse Practitioner Adult Health | DX: R51.9 Headache, unspecified (principal); I10 Essential (primary) hypertension | CPT/HCPCS: 99203 ==